=== PATIENT | female | born 1945 | race Caucasian/White ===

== ENCOUNTER 2018-07-10 11:33 | Outpatient (REF) | payer MEDICARE, MEDICAID, SELFPAY ==
[2018-07-10 12:19] LABS: BUN 13 mg/dL (7-18); CREATININE 0.76 mg/dL (0.55-1.02)
== END 2018-07-10 11:53 ==
LOC: LBN 11:33
PROVIDERS: PCP Family Medicine; Visit Provider Family Medicine
DX: Z01.818 Encounter for other preprocedural examination (principal)
CPT/HCPCS: 84520; 82565

== ENCOUNTER 2019-01-01 13:05 | Emergency (ER) | payer MEDICARE, MEDICAID, SELFPAY ==
[2019-01-01 13:14] VITALS: BP 140/77; PULSE 72; RESP 16; TEMP 36.4; O2SAT 99
--- NOTE | 2019-01-01 13:32 | W.ED.GENAD ---
Discharge Plan Disposition Patient Disposition: HOME Condition: Good Discharge Details Chief Complaint: HeadInjury Clinical Impression: Contusion Primary Care Provider: Horacio Crowder ED Provider: Merrick Campbell Home Meds and New Rx's Prescriptions: No Action acetaminophen [Tylenol] 325 MG tablet 325 mg PO PRNRF: 0 acetaminophen [Acephen] 650 MG suppository 650 mg ID PRNRF: 0 oxybutynin chloride 15 MG tablet extended release 24hr 15 mg PO DAILY RF: 0 cyanocobalamin (vitamin B-12) [Vitamin B-12] 1,000 MCG tablet 1,000 mcg PO DAILY RF: 0 aspirin [Aspir-81] 81 MG tablet,delayed release (DR/EC) 81 mg PO DAILY RF: 0 citalopram 20 MG tablet 20 mg PO RF: 0 magnesium hydroxide [Milk of Magnesia] 30 ML suspension 30 ml PO HS PRN PRNRF: 0 carboxymethylcellulose sodium [Refresh Tears] 30 ML drops 15 ml Ophthalmic DAILY RF: 0 bisacodyl 10 MG suppository 10 mg ID PRNRF: 0 divalproex 500 MG tablet extended release 24 hr 500 mg PO DAILY RF: 0 fluticasone propion-salmeterol [Advair Diskus] 1 EACH blister with device 1 ea Inhalation BID RF: 0 omeprazole 20 MG capsule,delayed release(DR/EC) 20 mg PO DAILY RF: 0 montelukast 10 MG tablet 10 mg PO DAILY RF: 0 albuterol sulfate [Ventolin HFA] 1 PUFF HFA aerosol inhaler 2 Inhalation PRNRF: 0 divalproex [Depakote ER] 250 MG tablet extended release 24 hr 250 mg PO DAILY RF: 0 calcium carbonate-vitamin D3 1 EACH tablet 1,000 mg PO DAILY RF: 0 Discharge Instructions Instructions: Contusion in Adults (ED) Additional Instructions: If you notice any worsening of your symptoms, or any new symptoms such as vomiting, diarrhea, fever, chills, shortness of breath, chest pain, numbness, weakness, or fainting , please return immediately to the emergency department for reevaluation. Please follow up with your primary care provider as soon as possible for reassessment and reevaluation. As always, it was a pleasure participating in your medical care today. Medical Decision Making This is a 73-year-old female who is mental baseline is severe dementia and being nonverbal, nonambulatory with a history of falls. She presents today from her facility after falling out of her bed. She normally has questions on the floor for this very reason. Notable contusion was noted over her forehead at the facility, so she was sent in for further evaluation as it was concerned that she was uncomfortable. Patient's CODE STATUS is DNR, DNI, comfort on review of her record. We will get a CT scan of her head neck to rule out acute intracranial bleed. At this time she does appear comfortable, with no signs of significant distress, tachycardia. 2:[address] scan results have returned and per radiology there is no evidence of acute fracture subdural hematoma, acute cervical spine fracture injury. Patient continues to be hemodynamically stable with no focal neurologic deficits that could be appreciated. Patient will be discharged back to her facility. I did discuss the case with Dr. Whiteside, and she agrees with the plan. I have extensively reviewed the treatment plan with the patient. I have addressed all patient concerns at this time. I have also discussed the plan with the admitting physician and they agree with the current assessment and plan and have agreed to assume responsibility for the patient. All parties demonstrate verbal understanding and agreement with our assessment and plan at this time. HPI General Date/Time Provider Initiated Documentation: 01/01/19 13:11. HPI Narrative: This is a 73-year-old female with a past medical history of CGI severe dementia who is nonverbal at baseline, as well as reflux hypertension high cholesterol, who is not on any blood thinners who presents today for evaluation of fall. The patient is normally on a bed that is on the ground secondary to a history of falls out of bed. She has questions on the ground around her. Today she was found by staff on the ground next to her bed. Notable contusion over her forehead. She fell down roughly 1 foot. She was suspected to be down roughly 4-5 minutes. Patient verbalizes no complaints, and is at her baseline. Staff did state that she is making slightly more gurgling noises than usual which staff states is indicative of pain. Patient and staff deny any other complaints or modifying factors otherwise. Related Data Home Medications Medication Instructions Recorded Confirmed acetaminophen [Tylenol Supp] 650 mg ID PRN 01/18/13 08/01/13 acetaminophen [Tylenol] 325 mg PO PRN 01/18/13 08/01/13 albuterol sulfate [Ventolin Hfa] 2 INHALATION PRN 01/18/13 08/01/13 aspirin [Aspir 81] 81 mg PO DAILY 01/18/13 08/01/13 bisacodyl 10 mg ID PRN 01/18/13 08/01/13 calcium carbonate-vitamin D3 1,000 mg PO DAILY 01/18/13 08/01/13 carboxymethylcellulose sodium 15 ml OPHTHALMIC DAILY 01/18/13 08/01/13 [Refresh Tears] citalopram 20 mg PO 01/18/13 08/01/13 cyanocobalamin (vitamin B-12) 1,000 mcg PO DAILY 01/18/13 08/01/13 [Vitamin B-12] divalproex 500 mg PO DAILY 01/18/13 08/01/13 divalproex [Depakote ER] 250 mg PO DAILY 01/18/13 08/01/13 fluticasone propion-salmeterol 1 ea INHALATION BID 01/18/13 08/01/13 [Advair 500-50 Diskus] magnesium hydroxide [Milk Of 30 ml PO HS PRN PRN 01/18/13 08/01/13 Magnesia] montelukast 10 mg PO DAILY 01/18/13 08/01/13 omeprazole 20 mg PO DAILY 01/18/13 08/01/13 oxybutynin chloride 15 mg PO DAILY 01/18/13 08/01/13 Allergies Allergy/AdvReac Type Severity Reaction Status Date / Time copper [Copper] Allergy Unknown Unverified 01/18/13 15:54 milk Allergy Unknown Unverified 01/18/13 15:54 Sulfa (Sulfonamide Allergy Unknown Unverified 01/18/13 15:54 Antibiotics) feliciano Allergy Unknown Uncoded 01/18/13 15:54 Review of Systems Review of Systems Unobtainable due to mental condition [facility] Social History Smoking/Tobacco Use Status: Never Drug use: Never Exam Narrative Exam Narrative: 1.Const: Well-nourished, Well-developed, appearing stated age 2.Eyes: PERRL, no conjunctival injection, and symmetrical lids. 3.ENT: Moist MM. Neck: Symmetric, trachea midline, No thyromegaly. Notable contusion over her forehead. There is no evidence of raccoon eyes, murrell sign, CSF rhinorrhea, mastoid tenderness, cranial crepitus, hemotympanum, exophthalmos, or hyphema. Patient demonstrates intact dentition with no signs of tooth avulsion or fracture, no signs of jaw deformity, no evidence of a LeFort's fracture, with an intact palate, nose and orbital region. There is no evidence of a nasal septal hematoma. No proptosis. Jaw closes symmetrically. Airway is clear. 4.CVS: +S1/S2, No murmurs or gallops. Peripheral pulses 2+ and equal in all extremities. Brisk capillary refill in all extremities. 5.RESP: Unlabored respiratory effort. Clear to auscultation bilaterally. No wheezes rales or rhonchi 6.GI: Soft, Nontender/Nondistended, No hepatosplenomegaly. No guarding or rebound. 7.MSK: Normocephalic/Atraumatic, Extremities w/o deformity or ttp No cyanosis or clubbing, Normal movement of all extremities 8.Skin: Warm, Dry. Notable contusion over forehead. 9.Neuro: It appears that cranial nerves II through XII are grossly intact, patient spontaneously moves all extremities, no signs of severe deficit that can be appreciated, however exam limited secondary to patient's chronic mental basal 10.Psych: A and O x0. At baseline per paperwork and from history from medical staff at facility
--- NOTE | 2019-01-01 13:39 | ED.GENADUL_ITS ---
Discharge Plan Disposition Patient Disposition: HOME Condition: Good Discharge Details Chief Complaint: HeadInjury Clinical Impression: Contusion Primary Care Provider: Horacio Crowder ED Provider: Merrick Campbell Home Meds and New Rx's Prescriptions: No Action acetaminophen [Tylenol] 325 MG tablet 325 mg PO PRNRF: 0 acetaminophen [Acephen] 650 MG suppository 650 mg HI PRNRF: 0 oxybutynin chloride 15 MG tablet extended release 24hr 15 mg PO DAILY RF: 0 cyanocobalamin (vitamin B-12) [Vitamin B-12] 1,000 MCG tablet 1,000 mcg PO DAILY RF: 0 aspirin [Aspir-81] 81 MG tablet,delayed release (DR/EC) 81 mg PO DAILY RF: 0 citalopram 20 MG tablet 20 mg PO RF: 0 magnesium hydroxide [Milk of Magnesia] 30 ML suspension 30 ml PO HS PRN PRNRF: 0 carboxymethylcellulose sodium [Refresh Tears] 30 ML drops 15 ml Ophthalmic DAILY RF: 0 bisacodyl 10 MG suppository 10 mg HI PRNRF: 0 divalproex 500 MG tablet extended release 24 hr 500 mg PO DAILY RF: 0 fluticasone propion-salmeterol [Advair Diskus] 1 EACH blister with device 1 ea Inhalation BID RF: 0 omeprazole 20 MG capsule,delayed release(DR/EC) 20 mg PO DAILY RF: 0 montelukast 10 MG tablet 10 mg PO DAILY RF: 0 albuterol sulfate [Ventolin HFA] 1 PUFF HFA aerosol inhaler 2 Inhalation PRNRF: 0 divalproex [Depakote ER] 250 MG tablet extended release 24 hr 250 mg PO DAILY RF: 0 calcium carbonate-vitamin D3 1 EACH tablet 1,000 mg PO DAILY RF: 0 Discharge Instructions Instructions: Contusion in Adults (ED) Additional Instructions: If you notice any worsening of your symptoms, or any new symptoms such as vomiting, diarrhea, fever, chills, shortness of breath, chest pain, numbness, weakness, or fainting , please return immediately to the emergency department for reevaluation. Please follow up with your primary care provider as soon as possible for reassessment and reevaluation. As always, it was a pleasure participating in your medical care today. Medical Decision Making This is a 73-year-old female who is mental baseline is severe dementia and being nonverbal, nonambulatory with a history of falls. She presents today from her facility after falling out of her bed. She normally has questions on the floor for this very reason. Notable contusion was noted over her forehead at the facility, so she was sent in for further evaluation as it was concerned that she was uncomfortable. Patient's CODE STATUS is DNR, DNI, comfort on review of her record. We will get a CT scan of her head neck to rule out acute intracranial bleed. At this time she does appear comfortable, with no signs of significant distress, tachycardia. 2:[address] scan results have returned and per radiology there is no evidence of acute fracture subdural hematoma, acute cervical spine fracture injury. Patient continues to be hemodynamically stable with no focal neurologic deficits that could be appreciated. Patient will be discharged back to her facility. I did discuss the case with Dr. Whiteside, and she agrees with the plan. I have extensively reviewed the treatment plan with the patient. I have addressed all patient concerns at this time. I have also discussed the plan with the admitting physician and they agree with the current assessment and plan and have agreed to assume responsibility for the patient. All parties demonstrate verbal un derstanding and agreement with our assessment and plan at this time. HPI General Date/Time Provider Initiated Documentation: 01/01/19 13:11 . HPI Narrative: This is a 73-year-old female with a past medical history of CGI severe dementia who is nonverbal at baseline, as well as reflux hypertension high cholesterol, who is not on any blood thinners who presents today for evaluation of fall. The patient is normally on a bed that is on the ground secondary to a history of falls out of bed. She has questions on the ground around her. Today she was found by staff on the ground next to her bed. Notable contusion over her forehead. She fell down roughly 1 foot. She was suspected to be down roughly 4-5 minutes. Patient verbalizes no complaints, and is at her baseline. Staff did state that she is making slightly more gurgling noises than usual which staff states is indicative of pain. Patient and staff deny any other complaints or modifying factors otherwise. Related Data Home Medications Medication Instructions Recorded Confirmed acetaminophen [Tylenol Supp] 650 mg HI PRN 01/18/13 08/01/13 acetaminophen [Tylenol] 325 mg PO PRN 01/18/13 08/01/13 albuterol sulfate [Ventolin Hfa] 2 INHALATION PRN 01/18/13 08/01/13 aspirin [Aspir 81] 81 mg PO DAILY 01/18/13 08/01/13 bisacodyl 10 mg HI PRN 01/18/13 08/01/13 calcium carbonate-vitamin D3 1,000 mg PO DAILY 01/18/13 08/01/13 carboxymethylcellulose sodium 15 ml OPHTHALMIC DAILY 01/18/13 08/01/13 [Refresh Tears] citalopram 20 mg PO 01/18/13 08/01/13 cyanocobalamin (vitamin B-12) 1,000 mcg PO DAILY 01/18/13 08/01/13 [Vitamin B-12] divalproex 500 mg PO DAILY 01/18/13 08/01/13 divalproex [Depakote ER] 250 mg PO DAILY 01/18/13 08/01/13 fluticasone propion-salmeterol 1 ea INHALATION BID 01/18/13 08/01/13 [Advair 500-50 Diskus] magnesium hydroxide [Milk Of 30 ml PO HS PRN PRN 01/18/13 08/01/13 Magnesia] montelukast 10 mg PO DAILY 01/18/13 08/01/13 omeprazole 20 mg PO DAILY 01/18/13 08/01/13 oxybutynin chloride 15 mg PO DAILY 01/18/13 08/01/13 Allergies Allergy/AdvReac Type Severity Reaction Status Date / Time copper [Copper] Allergy Unknown Unverified 01/18/13 15:54 milk Allergy Unknown Unverified 01/18/13 15:54 Sulfa (Sulfonamide Allergy Unknown Unverified 01/18/13 15:54 Antibiotics) feliciano Allergy Unknown Uncoded 01/18/13 15:54 Review of Systems Review of Systems Unobtainable due to mental condition [facility] Social History Smoking/Tobacco Use Status: Never Drug use: Never Exam Narrative Exam Narrative: 1.Const: Well-nourished, Well-developed, appearing stated age 2.Eyes: PERRL, no conjunctival injection, and symmetrical lids. 3.ENT: Moist MM. Neck: Symmetric, trachea midline, No thyromegaly. Notable contusion over her forehead. There is no evidence of raccoon eyes, murrell sign, CSF rhinorrhea, mastoid tenderness, cranial crepitus, hemotympanum, exophthalmos, or hyphema. Patient demonstrates intact dentition with no signs of tooth avulsion or fracture, no signs of jaw deformity, no evidence of a LeFort's fracture, with an intact palate, nose and orbital region. There is no evidence of a nasal septal hematoma. No proptosis. Jaw closes symmetrically. Airway is clear. 4.CVS: +S1/S2, No murmurs or gallops. Peripheral pulses 2+ and equal in all extremities. Brisk capillary refill in all extremities. 5.RESP: Unlabored respiratory effort. Clear to auscultation bilaterally. No wheezes rales or rhonchi 6.GI: Soft, Nontender/Nondistended, No hepatosplenomegaly. No guarding or rebound. 7.MSK: Normocephalic/Atraumatic, Extremities w/o deformity or ttp No cyanosis or clubbing, Normal movement of all extremities 8.Skin: Warm, Dry. Notable contusion over forehead. 9.Neuro: It appears that cranial nerves II through XII are grossly intact, patient spontaneously moves all extremities, no signs of severe deficit that can be appreciated, however exam limited secondary to patient's chronic mental basal 10.Psych: A and O x0. At baseline per paperwork and from history from medical staff at facility
--- NOTE | 2019-01-01 13:50 | NUR.NOTE ---
Escort to CT for head scan at 1345 via stretcherNursing Note:
--- NOTE | 2019-01-01 14:04 | DI.CT_ITS ---
SYMPTOMS/DIAGNOSIS: FRONTAL CONTUSION, DEMENTED, S/P FALL CRANIAL CT: A right supraorbital and right frontal scalp hematoma is demonstrated. There is no evidence of a skull fracture. There is no evidence of an intra/extra-axial hemorrhage. Prominent atrophic changes are demonstrated and there are findings consistent with small vessel disease. There is no mass. SUMMARY: Right frontal scalp hematoma. No skull fracture. No evidence of an acute intracranial abnormality. C-SPINE CT: The C-spine CT was carried out according to the usual protocol without contrast enhancement. The vertebral bodies are intact. Note is made of degenerative bony changes associated with narrowed disc at C6-C7. The neural canal is widely patent. The neural foramina appear patent. The posterior elements are intact. The odontoid is intact and is closely applied to the anterior arch of C1. The prevertebral soft tissues are unremarkable. SUMMARY: No evidence of a fracture or subluxation. Degenerative changes as described above.
[2019-01-01 16:24] VITALS: BP 147/67; PULSE 77; RESP 16; TEMP 36.3; O2SAT 98
== END 2019-01-01 14:35 | disposition home or self-care (01) ==
PROVIDERS: Emergency Provider Student in an Organized Health Care Education/Training Program; PCP Family Medicine
DX: S00.83XA Contusion of other part of head, initial encounter (principal); W06.XXXA Fall from bed, initial encounter; F03.90 Unspecified dementia, unspecified severity, without behavioral disturbance, psychotic disturbance, mood disturbance, and anxiety
CPT/HCPCS: 99284; 70450; 72125

== ENCOUNTER 2020-02-02 20:19 | Outpatient (REF) | payer MEDICARE, MEDICAID, SELFPAY ==
[2020-02-02 17:55] LABS: Abs Immature Grans 0.02 k/cumm (0.0-0.09); Absolute Basophil Count 0.02 k/cumm (0.0-0.2); Absolute Eosinophil Count 0.15 k/cumm (0.0-0.7); Absolute Lymphocyte Count 1.97 k/cumm (1.2-3.4); Absolute Monocyte Count 0.78 k/cumm (0.11-0.7); Absolute Neutrophil Count 5.77 k/cumm (1.2-6.7); Basophils % 0.2; Eosinophils % 1.7; HCT 42.6 % (36.0-46.0); HGB 14.8 g/dL (12.0-15.5); Immature Grans % 0.2 %; Lymphocytes % 22.6; Mean Corp. HGB Concentration 34.7 g/dL (32.0-36.0); Mean Corpuscular Hemoglobin 31.7 pg (27.0-33.0); Mean Corpuscular Volume 91.2 fL (80-95); Mean Platelet Volume 10.4 fL (8.0-11.0); Neutrophils % 66.3; Platelet Count 252 x1000/uL (130-400); RBC 4.67 m/cumm (4.00-5.20); RBC Distribution Width 12.4 % (11.7-14.6); White Blood Cell Count 8.71 k/cumm (4.4-10.8)
[2020-02-02 18:01] LABS: Anion Gap 6.4 mmol/L (3-11); BUN 11 mg/dL (7-18); CO2 27.6 mmol/L (21.0-32.0); CREATININE 0.94 mg/dL (0.55-1.02); Calcium 8.8 mg/dL (8.5-10.1); Chloride 106 mmol/L (98-107); Estimated GFR 57.74 (mL/min/1.73m2); Glucose 143 mg/dL (74-106); Potassium 4.2 mmol/L (3.5-5.1); Sodium 140 mmol/L (136-145)
== END 2020-02-02 20:39 ==
LOC: LBN 20:19
PROVIDERS: PCP Family Medicine; Visit Provider Nurse Practitioner Adult Health
DX: E78.5 Hyperlipidemia, unspecified (principal)
CPT/HCPCS: 80048; 85025

== ENCOUNTER 2020-02-04 18:05 | Outpatient (REF) | payer MEDICARE, MEDICAID, SELFPAY | END 2020-02-04 18:25 | LOC: LBN 18:05 | PROVIDERS: PCP Family Medicine; Visit Provider Nurse Practitioner Adult Health | DX: R19.7 Diarrhea, unspecified (principal) | CPT/HCPCS: 87324 ==

== ENCOUNTER 2021-10-02 17:26 | Outpatient (REF) | payer MEDICARE, MEDICAID, SELFPAY ==
[2021-10-02 17:26] LABS: Abs Immature Grans 0.01 10^3/uL (0.0-0.06); Absolute Basophil Count 0.04 10^3/uL (0.0-0.2); Absolute Eosinophil Count 0.18 10^3/uL (0.0-0.7); Absolute Lymphocyte Count 1.73 10^3/uL (1.2-3.4); Absolute Monocyte Count 0.49 10^3/uL (0.1-0.8); Absolute Neutrophil Count 3.91 10^3/uL (1.2-6.7); Anion Gap 5.8 mmol/L (3-11); BUN 16 mg/dL (7-18); Basophils % 0.6; CO2 32.2 mmol/L (21.0-32.0); CREATININE 0.7 mg/dL (0.55-1.02); Calcium 8.8 mg/dL (8.5-10.1); Chloride 109 mmol/L (98-107); Eosinophils % 2.8; Glucose 153 mg/dL (74-106); HCT 42.7 % (36.0-46.0); HGB 13.8 g/dL (11.2-15.7); Immature Grans % 0.2; Lymphocytes % 27.2; MCH 31.1 pg (27.0-33.0); MCHC 32.3 % (32.0-36.0); MCV 96.2 fL (80-95); MPV 10.4 fL (8.0-11.0); Monocytes % 7.7; Neutrophils % 61.5; Nucleated RBC 0 %; Platelet Count 196 10^3/uL (130-400); Potassium 4.2 mmol/L (3.5-5.1); RBC 4.44 10^6/uL (3.93-5.22); RDW 12.5 % (11.7-14.6); RDW-SD 44.7 fL; Sodium 147 mmol/L (136-145); WBC 6.36 10^3/uL (4.4-10.8)
== END 2021-10-02 17:27 | disposition home or self-care (01) ==
LOC: LBN 17:26
PROVIDERS: PCP Family Medicine; Visit Provider Family Medicine
DX: E11.9 Type 2 diabetes mellitus without complications (principal); F03.90 Unspecified dementia, unspecified severity, without behavioral disturbance, psychotic disturbance, mood disturbance, and anxiety
CPT/HCPCS: 80048; 85025

== ENCOUNTER 2021-11-17 07:48 | Outpatient (REF) | payer MEDICARE, MEDICAID, SELFPAY ==
[2021-11-17 11:56] LABS: Bilirubin Negative (Negative); Blood Moderate (Negative); Clarity Cloudy (Clear); Glucose Negative (Negative); Ketones Negative (Negative); Leukocyte Esterase Large (Negative); Nitrite Positive (Negative); Urobilinogen 0.2 EU/dL (Up TO 0.2)
[2021-11-17 12:03] LABS: Bacteria Moderate HPF (Negative); Casts Negative LPF (Negative); Crystals Negative HPF (Negative); Epithelial Cells Few HPF (Negative); Mucus Negative (Negative); RBC 20-50 HPF (0-2); WBC >50 HPF (0-5)
[2021-11-17 12:04] LABS: C & S Indicated? C&S Done As Ordered
[2021-11-17 16:46] LABS: HCT 44.9 % (36.0-46.0); HGB 14.6 g/dL (11.2-15.7); MCH 31.1 pg (27.0-33.0); MCHC 32.5 % (32.0-36.0); MCV 95.7 fL (80-95); MPV 10.8 fL (8.0-11.0); Platelet Count 206 10^3/uL (130-400); RBC 4.69 10^6/uL (3.93-5.22); RDW 12.2 % (11.7-14.6); RDW-SD 43.5 fL; WBC 6.79 10^3/uL (4.4-10.8)
[2021-11-17 18:01] LABS: Hemoglobin A1C 6.1 % (<5.7)
[2021-11-17 18:05] LABS: BUN 11 mg/dL (7-18); CREATININE 0.7 mg/dL (0.55-1.02); Calcium 8.8 mg/dL (8.5-10.1); Chloride 110 mmol/L (98-107); Glucose 136 mg/dL (74-106); Sodium 147 mmol/L (136-145)
== END 2021-11-17 07:49 | disposition home or self-care (01) ==
LOC: LBN 07:48
PROVIDERS: PCP Family Medicine; Visit Provider Nurse Practitioner Family
DX: N39.0 Urinary tract infection, site not specified (principal); E11.9 Type 2 diabetes mellitus without complications; F03.90 Unspecified dementia, unspecified severity, without behavioral disturbance, psychotic disturbance, mood disturbance, and anxiety; R26.9 Unspecified abnormalities of gait and mobility
CPT/HCPCS: 80048; 85027; 81003; 81015; 83036; 87086

== ENCOUNTER 2022-03-30 13:13 | Outpatient (REF) | payer MEDICARE, MEDICAID, SELFPAY ==
[2022-03-30 13:31] LABS: Abs Immature Grans 0.01 10^3/uL (0.0-0.06); Absolute Basophil Count 0.05 10^3/uL (0.0-0.2); Absolute Eosinophil Count 0.16 10^3/uL (0.0-0.7); Absolute Lymphocyte Count 1.88 10^3/uL (1.2-3.4); Absolute Monocyte Count 0.58 10^3/uL (0.1-0.8); Basophils % 0.7; Eosinophils % 2.4; HCT 42.1 % (36.0-46.0); HGB 13.6 g/dL (11.2-15.7); Immature Grans % 0.1; Lymphocytes % 28.1; MCH 31.1 pg (27.0-33.0); MCHC 32.3 % (32.0-36.0); MCV 96 fL (80-95); MPV 10.8 fL (8.0-11.0); Monocytes % 8.7; Platelet Count 195 10^3/uL (130-400); RBC 4.38 10^6/uL (3.93-5.22); RDW 12.2 % (11.7-14.6); RDW-SD 43.3 fL; WBC 6.68 10^3/uL (4.4-10.8)
[2022-03-30 13:54] LABS: ALT 15 U/L (14-59); AST 12 U/L (15-37); Albumin 3.3 g/dL (3.4-5.0); Alkaline Phosphatase 68 U/L (46-116); Anion Gap 3.8 mmol/L (3-11); BUN 10 mg/dL (7-18); Bilirubin, Total 0.2 mg/dL (0.2-1.0); CO2 31.2 mmol/L (21.0-32.0); CREATININE 0.6 mg/dL (0.55-1.02); Calcium 8.7 mg/dL (8.5-10.1); Chloride 108 mmol/L (98-107); Glucose 122 mg/dL (74-106); Sodium 143 mmol/L (136-145); Total Protein 5.6 g/dL (6.4-8.2)
== END 2022-03-30 13:14 | disposition home or self-care (01) ==
LOC: LBN 13:13
PROVIDERS: PCP Family Medicine; Visit Provider Family Medicine
DX: E11.9 Type 2 diabetes mellitus without complications (principal); M62.81 Muscle weakness (generalized)
CPT/HCPCS: 80053; 85025